=== PATIENT | male | born 1940 | race Caucasian/White ===

== ENCOUNTER 2018-11-15 05:48 | Observation (INO) | payer MEDICARE ==
[2018-11-13 12:25] LABS: BASOPHILS % (AUTO) 0.6 % (0.0-5.0); EOSINOPHILS % (AUTO) 5.9 % (0.0-8.0); HEMATOCRIT 42.2 % (42-54); LYMPHOCYTES % (AUTO) 27.3 % (21.0-51.0); MEAN CORPUSCULAR HEMOGLOBIN 30.1 pg (27.0-33.0); MEAN CORPUSCULAR HGB CONC 33.1 g/dL (32.0-36.0); MEAN CORPUSCULAR VOLUME 90.9 fL (79-99); MONOCYTES % (AUTO) 7.7 % (3.0-13.0); NEUTROPHILS % (AUTO) 58.5 % (40.0-77.0); PLATELET COUNT (AUTO) 222 K/uL (130-400); RED BLOOD CELL COUNT(AUTO) 4.64 MIL/uL (4.50-6.20); RED CELL DISTRIBUTION WIDTH 14.2 % (11.0-15.5); WHITE BLOOD COUNT (AUTO) 6.1 K/uL (4.8-10.8)
[2018-11-13 12:30] LABS: APPEARANCE,URINE CLEAR (CLEAR); BILIRUBIN,URINE NEGATIVE (NEGATIVE); COLOR,URINE YELLOW (YELLOW); GLUCOSE, URINE (UA) NEGATIVE (NEGATIVE); KETONES,URINE NEGATIVE (NEGATIVE); LEUKOCYTE ESTERASE ,URINE NEGATIVE (NEGATIVE); NITRATE,URINE NEGATIVE (NEGATIVE); OCCULT BLOOD,URINE TRACE-INTACT (NEGATIVE); PROTEIN,URINE NEGATIVE (NEGATIVE); UROBILINOGEN,URINE 0.2 mg/dL (0.2-1.0)
[2018-11-13 12:32] VITALS: BP 148/66
[2018-11-13 12:35] LABS: CREATININE 0.9 mg/dL (0.5-1.5); POTASSIUM 4.6 mmol/L (3.5-5.1)
[2018-11-13 12:41] LABS: INR 0.95 (0.85-1.15); PARTIAL THROMBOPLASTIN TIME 27.9 SEC (26.3-35.5)
[2018-11-13 12:57] LABS: BACTERIA,URINE Rare /HPF (None Seen); MUCUS,URINE Rare LPF (None Seen); RBC,URINE 0-1 /HPF (0-1); SQUAMOUS EPITHELIAL CELL,UR Rare /HPF (0-2)
--- NOTE | 2018-11-13 13:21 | NUR ---
ELIQUIS INFORMED MARK MARIANO PT TOOK ELIQUIS DOSE ON 11/12/18 AT 0900. ORDERS RECEIVED TO NOT HAVE PT TAKE ANYMORE ELIQUIS. INSTRUCTED PT AND PTS ON NOT TAKING ANYMORE ELIQUIS BEFORE PROCEDURE. BOTH VERBALIZED UNDERSTANDING.
--- NOTE | 2018-11-14 14:30 | NUR ---
report abnormal chest xray reported to Javi FLORES, no further orders given
[~2018-11-15] VITALS: Ht 177.8 cm; Wt 90.9 kg
[2018-11-15] VITALS (12 sets, daily range): BP systolic 116–137; BP diastolic 56–87
[~2018-11-15 05:48] MED LIST: APIX5TAB PO; ATOR40TA71 PO; CILO50TA PO; CLOP75TA32 PO; LOSA50TA64 PO; METO-409 PO
[2018-11-15] MEDS ORDERED: SODIUM CHLORIDE 0.9% 1000ML 1,000 ML IV ONE (06:12)
--- NOTE | 2018-11-15 06:40 | NUR ---
ASSES PEDAL PULSES BILATERAL DORSAL- VERY WEAK ON PALPATION, STRONG DOPPLER.
--- NOTE | 2018-11-15 07:12 | NUR ---
TO [employer] PT TRANSFERRED TO [employer] VIA BED BY BEATRIZ BOWMAN. PT STABLE. NO COMPLAINTS MADE.
[2018-11-15] MEDS ORDERED: LIDOCAINE HCL 2% 20ML ONE (07:15)
[2018-11-15] MEDS ORDERED: IOHEXOL 350 MG/ML 100ML INFUS..BTL IV ONE ×2 (07:15→07:51)
[2018-11-15] MEDS ORDERED: IOHEXOL-350 50ML VIAL IV ONE (07:15)
[2018-11-15] MEDS ORDERED: NITROGLYCERIN 5 MG/ML 10 ML VIAL IV ONE (07:15)
[2018-11-15] MEDS ORDERED: SODIUM BICARB 50MEQ 50ML VIAL ONE (07:15)
[2018-11-15] MEDS ORDERED: MEPERIDINE-PF 25 MG/ML SYG ONE (07:24)
[2018-11-15] MEDS ORDERED: MIDAZOLAM HCL 1 MG/ML 2ML VIAL ONE (07:24)
[2018-11-15] MEDS ORDERED: HEPARIN SODIUM 1000UNIT/ML 10ML VIAL ONE (08:04)
[2018-11-15] MEDS ORDERED: ASPIRIN 81MG TAB.CHEW ONE (08:42)
[2018-11-15] MEDS ORDERED: CLOPIDOGREL BISULFATE 75 MG TAB ONE (08:42)
[2018-11-15] MEDS ORDERED: NITROGLYCERIN 50 MG/D5% WATER 1 BOT IV PRN (09:00)
[2018-11-15] MEDS: CLOPIDOGREL BISULFATE 75 MG TAB PO SCH (09:00)
[2018-11-15] MEDS: ASPIRIN 81MG TAB.CHEW PO SCH (09:00)
[2018-11-15] MEDS ORDERED: ONDANSETRON HCL 4 MG/2 ML VIAL IVP PRN (09:00)
[2018-11-15] MEDS ORDERED: ACETAMINOPHEN-CODEINE 300/30MG TAB PO PRN ×2 (09:00)
[2018-11-15] MEDS: APIXABAN 5 MG TABLET PO SCH ×2 (09:00→22:18)
[2018-11-15] MEDS: PANTOPRAZOLE SODIUM 40 MG TABLET.DR PO SCH (09:00)
[2018-11-15] MEDS ORDERED: TEMAZEPAM 30 MG CAP PO PRN (09:00)
--- NOTE | 2018-11-15 09:25 | NUR ---
PATIENT HAS ARRIVED FROM [facility]CHITECT TO TELE UNIT ROOM 232. PATIENT AAOX3. RIGHT GROIN DRESSING DRY INTACT, NO SIGNS OF HEMATOMA, GROIN SITE SOFT, BILATERAL LE PULSES PRESENT. SCHEDULED FOR 6HRS OF BEDREST.
--- NOTE | 2018-11-15 09:40 | NUR ---
ASSESSED RIGHT GROIN SITE. NO HEMATOMA, AREA SOFT, LE PULSES PRESENT.
--- NOTE | 2018-11-15 10:30 | NUR ---
INFORMED DR. LINARES IN THE [facility] ABOUT PATIENT CONSULT.
[2018-11-15] MEDS: SODIUM CHLORIDE 0.9% 1000ML 1,000 ML IV SCH ×2 (10:39→22:11)
--- NOTE | 2018-11-15 12:00 | NUR ---
HEMATOMA PRESENT ON RIGHT GROIN AREA. SITE RED/PURPLE COLOR, PATIENT CLAIMS IT FEELS "A LITTLE SORE". APPLIED PRESSURE FOR 10MIN. WILL MONITOR SITE. LE PULSES PRESENT.
--- NOTE | 2018-11-15 12:15 | NUR ---
RIGHT GROIN HEMATOMA PRESENT, NO SIGNS OF GROWTH. PATIENT CLAIMS AREA STILL FEELS " A LITTLE SORE". LE PULSES PRESENT.
--- NOTE | 2018-11-15 15:00 | NUR ---
HEAD OF BED ELEVATED 45DEGREES. RIGHT GROIN SITE HEMATOMA PRESENT. AREA SHOWS NO SIGN OF GROWTH. LE PULSES PRESENT.
--- NOTE | 2018-11-15 16:00 | NUR ---
PATIENT ABLE TO WALK TO BATHROOM. NO COMPLICATIONS. NO CHANGES TO RIGHT GROIN HEMATOMA. LE PULSES PRESENT.
[2018-11-15] MEDS: CILOSTAZOL 100 MG TAB PO SCH (17:32)
[2018-11-15] MEDS ORDERED: LOSARTAN 50 MG TABLET PO SCH (21:00)
[2018-11-15] MEDS ORDERED: CLOPIDOGREL BISULFATE 75 MG TAB PO SCH (21:00)
[2018-11-15] MEDS ORDERED: ATORVASTATIN CALCIUM 40 MG TABLET PO SCH (21:00)
--- NOTE | 2018-11-15 22:15 | NUR ---
RT. GROIN SOFT. NO SIGNS OF BLEEDING OR HEMATOMA. PEDAL PULSES PALPABLE.
[2018-11-15] MEDS: METOPROLOL TARTRATE 50 MG TAB PO SCH (22:18)
[2018-11-16 03:00] VITALS: BP 122/68
--- NOTE | 2018-11-16 04:15 | NUR ---
RT. ZAY VALENTIN.
[2018-11-16 04:19] LABS: HEMATOCRIT 36.9 % (42-54); MEAN CORPUSCULAR HEMOGLOBIN 30.3 pg (27.0-33.0); MEAN CORPUSCULAR HGB CONC 33.9 g/dL (32.0-36.0); MEAN CORPUSCULAR VOLUME 89.4 fL (79-99); PLATELET COUNT (AUTO) 195 K/uL (130-400); RED BLOOD CELL COUNT(AUTO) 4.13 MIL/uL (4.50-6.20); RED CELL DISTRIBUTION WIDTH 14.2 % (11.0-15.5); WHITE BLOOD COUNT (AUTO) 6.4 K/uL (4.8-10.8)
[2018-11-16 04:33] LABS: POTASSIUM 3.8 mmol/L (3.5-5.1)
[2018-11-16 07:00] VITALS: BP 127/64
--- NOTE | 2018-11-16 07:00 | NUR ---
Extensive bruising noted to right groin; as per night nurse, manual pressure held yesterday; area now soft but tender. Will continue to assess.
[2018-11-16] MEDS: PANTOPRAZOLE SODIUM 40 MG TABLET.DR PO SCH (08:38)
[2018-11-16] MEDS: CILOSTAZOL 100 MG TAB PO SCH ×2 (08:39→15:34)
[2018-11-16] MEDS: APIXABAN 5 MG TABLET PO SCH (08:39)
[2018-11-16] MEDS: ASPIRIN 81MG TAB.CHEW PO SCH (08:39)
[2018-11-16] MEDS: METOPROLOL TARTRATE 50 MG TAB PO SCH (09:00)
[2018-11-16 11:00] VITALS: BP 117/61
[2018-11-16] MEDS: CLOPIDOGREL BISULFATE 75 MG TAB PO SCH (15:34)
[2018-11-16 16:00] VITALS: BP 139/71
--- NOTE | 2018-11-16 16:00 | NUR ---
As per Capo Mcfarland, patient may go home and continue all home medications including plavix and eliquis. Patient instucted by Dr. Newton not to take ASA anymore. Dr. Newton made aware of patient vital signs and heart rate being slightly low this morning in mid 50s to low 60s. also made aware that metoprolol was held this morning; as per Dr. Newton, patient may continue on home dose of metoprolol and other BP meds. No further instructions given.
--- NOTE | 2018-11-16 17:20 | NUR ---
patient discharged home with no new prescriptions,as per Dr. Sheriff Scanlon. patient to continue all home medications as printed on discharge forms.
== END 2018-11-16 17:34 | disposition home or self-care (01) ==
LOC: DAH 05:48 → DAHIP 05:49 → 2AH 09:30
PROVIDERS: ADMIT Internal Medicine; ATTEND Internal Medicine
DX: I25.119 Atherosclerotic heart disease of native coronary artery with unspecified angina pectoris (principal); I25.810 Atherosclerosis of coronary artery bypass graft(s) without angina pectoris; E66.9 Obesity, unspecified; I10 Essential (primary) hypertension; I25.5 Ischemic cardiomyopathy; I48.0 Paroxysmal atrial fibrillation; E78.5 Hyperlipidemia, unspecified; J98.11 Atelectasis; Z85.46 Personal history of malignant neoplasm of prostate; Z95.5 Presence of coronary angioplasty implant and graft
CPT/HCPCS: 36415 ×2; 71045; 80048 ×2; 80061; 81001; 85025; 85027; 85610; 85730; 93005 ×2; 93459; A4606; C1725; C1760; C1769; C1874; C1887 ×2; C1894; C9600; G0378 ×36; J1644 ×2; J2175; J2250; J3490 ×3; J7030; Q9965 ×2; Q9967 ×3; 99156; 99157

== ENCOUNTER → 2019-08-25 | Outpatient (CLI) | payer MEDICARE ==
[2019-08-25 17:07] LABS: CREATININE 0.9 mg/dL (0.5-1.5)
== END | disposition home or self-care (01) ==
LOC: LAB 16:00
PROVIDERS: ATTEND Internal Medicine Cardiovascular Disease
DX: I73.9 Peripheral vascular disease, unspecified (principal)
CPT/HCPCS: 36415; 82565; 84520

== ENCOUNTER → 2019-09-09 | Outpatient (CLI) | payer MEDICARE ==
[~2019-09-09] MED LIST changes: +IOHEXOL 350 MG/ML 100ML INFUS..BTL IV ONE; +IOHEXOL-350 50ML VIAL IV ONE
== END | disposition home or self-care (01) ==
LOC: RAH 07:39
PROVIDERS: ATTEND Internal Medicine Cardiovascular Disease
DX: I77.811 Abdominal aortic ectasia (principal); I70.0 Atherosclerosis of aorta; M47.816 Spondylosis without myelopathy or radiculopathy, lumbar region; I73.9 Peripheral vascular disease, unspecified
CPT/HCPCS: 75635; Q9967 ×2

== ENCOUNTER → 2024-08-28 | Outpatient (CLI) | payer MEDICARE ==
[~2024-08-28] MED LIST changes: -CILO50TA PO; +CILO50TA2 PO; -IOHEXOL 350 MG/ML 100ML INFUS..BTL IV ONE; -IOHEXOL-350 50ML VIAL IV ONE
[2024-08-28 16:09] LABS: BASOPHILS # (AUTO) 0.06 K/uL (0.00-0.20); BASOPHILS % (AUTO) 0.7 % (0.0-5.0); EOSINOPHILS % (AUTO) 6.2 % (0.0-8.0); HEMATOCRIT 46.5 % (42-54); IMMATURE GRANULOCYTE ABSOLUTE 0.03 K/uL (0-1); LYMPHOCYTES # (AUTO) 2.6 K/uL (1.0-4.8); LYMPHOCYTES % (AUTO) 32.6 % (21.0-51.0); MEAN CORPUSCULAR HEMOGLOBIN 29.2 pg (27.0-33.0); MEAN CORPUSCULAR HGB CONC 31.8 g/dL (32.0-36.0); MEAN CORPUSCULAR VOLUME 91.9 fL (79-99); MONOCYTES # (AUTO) 0.7 K/uL (0.1-1.0); MONOCYTES % (AUTO) 8.3 % (3.0-13.0); NEUTROPHILS # (AUTO) 4.2 K/uL (1.8-7.7); NEUTROPHILS % (AUTO) 51.8 % (40.0-77.0); PLATELET COUNT (AUTO) 203 K/uL (130-400); RED BLOOD CELL COUNT(AUTO) 5.06 MIL/uL (4.50-6.20); RED CELL DISTRIBUTION WIDTH 14.8 % (11.0-15.5); WHITE BLOOD COUNT (AUTO) 8.1 K/uL (4.8-10.8)
[2024-08-28 16:28] LABS: ALBUMIN 3.4 g/dL (3.5-5.0); BILIRUBIN,TOTAL 0.7 mg/dL (0.2-1.0); CREATININE 0.9 mg/dL (0.5-1.3); POTASSIUM 3.9 mmol/L (3.5-5.1); TOTAL PROTEIN, SERUM 6.8 g/dL (6.0-8.3)
== END | disposition home or self-care (01) ==
LOC: LAB 11:29
PROVIDERS: ATTEND Internal Medicine Cardiovascular Disease
DX: E78.5 Hyperlipidemia, unspecified (principal)
CPT/HCPCS: 36415; 80053; 82150; 83690; 85025